=== PATIENT | male | born 1950 | race Caucasian/White ===

== ENCOUNTER 2022-01-17 20:03 | Inpatient (IN) | payer OTHER, MEDICAID ==
[~2022-01-17] VITALS: Ht 167.6 cm; Wt 73.9 kg
[2022-01-17] MEDS ORDERED: IPRATROPIUM BROMIDE (0.02%) 0.5MG/2.5ML NEB HHN ONE (20:30)
[2022-01-17] MEDS ORDERED: METHYLPREDNISOLONE SOD SUCC 125 MG/2 ML VIAL IV ONE (20:30)
[2022-01-17] MEDS ORDERED: EPINEPHRINE 1:1000 1 MG/ML AMP INJ ONE (20:30)
[2022-01-17] MEDS ORDERED: ALBUTEROL (0.083%) 2.5MG/3ML NEB HHN ONE (20:30)
[2022-01-17] MEDS: FAMOTIDINE 20MG/2ML VIAL IV ONE ×2 (20:37→20:40)
[2022-01-17] MEDS ORDERED: FUROSEMIDE 100MG/10ML VIAL IVP ONE (21:30)
[2022-01-17] MEDS ORDERED: NITROGLYCERIN 50MG PREMIX 250 ML IV ONE ×2 (21:30→21:45)
[2022-01-17 22:05] LABS: BG BASE EXCESS -9.1 mmol/L (-2.0-2.0); BG CARBOXYHEMOGLOBIN 0.5 % (0.5-1.5); BG DEOXYHEMOGLOBIN 8.4 % (0.0-5.0); BG FRACTION INSPIRED OXYGEN 60; BG HCO3 ACT 18.4 mmol/L (22.0-26.0); BG METHEMOGLOBIN 0.2 % (0.0-1.5); BG OXYGEN SATURATION 91.5 % (92.0-98.5); BG OXYHEMOGLOBIN 90.9 % (94.0-97.0); BG PCO2 45.4 mmHg (35.0-45.0); BG PH 7.226 (7.350-7.450); BG PO2 69.5 mmHg (75.0-100.0); BG SAMPLE SITE RIGHT BRACHIAL; BG TOTAL HEMOGLOBIN 16.1 g/dL (12.0-18.0); BG VENT MODE MASK - BIPAP
[2022-01-17 22:15] LABS: BASOPHILS % 0.5 % (0.0-2.0); EOSINOPHILS % 0.9 % (0.0-5.0); HEMATOCRIT. 46.8 % (42.0-52.0); HEMOGLOBIN. 15.2 g/dL (14.0-18.0); LYMPHOCYTES % 13.6 % (20.0-50.0); MEAN CORPUSCULAR HEMOGLOBIN 28.5 pg (28.0-32.0); MEAN CORPUSCULAR VOLUME 87.6 fL (80.0-94.0); MEAN PLATELET VOLUME 8.5 fl (7.4-10.4); MONOCYTES % 3.1 % (2.0-8.0); NEUTROPHILS % 81.9 % (40.0-76.0); PLATELET 303 x1000/uL (130-400); RED BLOOD CELL COUNT 5.34 mill/uL (4.7-6.1)
[2022-01-17 22:23] LABS: PROTHROMBIN TIME 10.6 sec (9.6-11.0)
[2022-01-17 22:38] LABS: CHLORIDE 98 mEq/L (98-107)
[2022-01-18] VITALS (39 sets, daily range): BP systolic 107–155; BP diastolic 60–88
[2022-01-18] MEDS ORDERED: NITROGLYCERIN 50MG PREMIX 250 ML IV PRN (13:00)
[2022-01-18] MEDS ORDERED: CEFTRIAXONE 1 G PREMIX 50 ML IV SCH (14:00)
[2022-01-18] MEDS ORDERED: ENOXAPARIN 80MG/0.8ML SYR SUBCUT SCH (14:00)
[2022-01-18] MEDS ORDERED: IPRATROPIUM/ALBUTEROL 0.5-3(2.5)MG/3ML NEB NEB PRN (14:00)
[2022-01-18] MEDS ORDERED: ONDANSETRON HCL 4MG/2ML INJ IV PRN (14:00)
[2022-01-18] MEDS ORDERED: ACETAMINOPHEN 325MG TABLET PO PRN (14:00)
[2022-01-18] MEDS ORDERED: HEPARIN 25,000 UNITS PREMIX 250 ML IV PRN (15:00)
[2022-01-18] MEDS ORDERED: HEPARIN 5000 UNITS/ML VIAL IV NR (15:00)
[2022-01-18] MEDS: ASPIRIN 81MG TABLET PO SCH (15:48)
[2022-01-18] MEDS: FUROSEMIDE 40MG/4ML VIAL IVP SCH ×2 (15:48→19:31)
[2022-01-18] MEDS: CEFTRIAXONE 1,000 MG in DEXTROSE 5% WATER 50 ML IV SCH (15:48)
[2022-01-18] MEDS: METHYLPREDNISOLONE SOD SUCC 40 MG/ML VIAL IV SCH ×2 (15:50→20:28)
[2022-01-18 16:56] LABS: PROTHROMBIN TIME 10.9 sec (9.6-11.0)
[2022-01-18 17:29] LABS: CREATINE KINASE 226 IU/L (39-308); CREATINE KINASE MB FRACTION 17.1 ng/mL (0.5-3.6)
[2022-01-18] MEDS: AZITHROMYCIN 500 MG in DEXT 5% WATER 250 ML IV SCH (17:32)
[2022-01-18] MEDS ORDERED: DEXTROSE 50% WATER 50ML SYRINGE IV PRN (18:15)
[2022-01-18] MEDS ORDERED: INSULIN LISPRO 100 UNITS/ML SUBCUT SCH ×2 (18:20→21:00)
[2022-01-18] MEDS ORDERED: INSULIN LISPRO 100 UNITS/ML SUBCUT NR (20:00)
[2022-01-18] MEDS: ATORVASTATIN CALCIUM 40MG TABLET PO SCH (20:28)
[2022-01-18] MEDS: CARVEDILOL 3.125 MG TABLET PO SCH (20:29)
[2022-01-18] MEDS ORDERED: BLOOD SUGAR DIAGNOSTIC STRIP TEST SCH (21:00)
[2022-01-18] MEDS ORDERED: HEPARIN 5000 UNITS/ML VIAL IV PRN ×2 (23:00)
[2022-01-19] VITALS (31 sets, daily range): BP systolic 104–136; BP diastolic 57–93
[2022-01-19] MEDS: BLOOD SUGAR DIAGNOSTIC STRIP TEST SCH ×5 (00:06→21:00)
[2022-01-19 00:15] LABS: CREATINE KINASE 152 IU/L (39-308); CREATINE KINASE MB FRACTION 10.1 ng/mL (0.5-3.6)
[2022-01-19] MEDS: FUROSEMIDE 40MG/4ML VIAL IVP SCH ×2 (06:04→17:23)
[2022-01-19 07:25] LABS: BASOPHILS % 0.3 % (0.0-2.0); HEMATOCRIT. 38.8 % (42.0-52.0); HEMOGLOBIN. 12.8 g/dL (14.0-18.0); LYMPHOCYTES % 8.3 % (20.0-50.0); MEAN CORPUSCULAR HEMOGLOBIN 28.7 pg (28.0-32.0); MEAN CORPUSCULAR VOLUME 86.9 fL (80.0-94.0); MEAN PLATELET VOLUME 8.1 fl (7.4-10.4); MONOCYTES % 2.6 % (2.0-8.0); NEUTROPHILS % 88.8 % (40.0-76.0); PLATELET 192 x1000/uL (130-400); RED BLOOD CELL COUNT 4.47 mill/uL (4.7-6.1); RED CELL DISTRIBUTION WIDTH 14.7 % (11.6-14.6)
[2022-01-19] MEDS: INSULIN LISPRO 100 UNITS/ML SUBCUT SCH ×4 (07:29→21:27)
[2022-01-19] MEDS: ASPIRIN 81MG TABLET PO SCH (08:11)
[2022-01-19] MEDS: CARVEDILOL 3.125 MG TABLET PO SCH (08:12)
[2022-01-19] MEDS: METHYLPREDNISOLONE SOD SUCC 40 MG/ML VIAL IV SCH (08:12)
[2022-01-19 09:53] LABS: CHLORIDE 100 mEq/L (98-107)
[2022-01-19 10:05] LABS: HDL CHOLESTEROL 56 mg/dL (40-59); LDL CHOLESTEROL 76 mg/dL (5-100)
[2022-01-19] MEDS ORDERED: MIDAZOLAM HCL 2 MG/2 ML VIAL ONE (13:22)
[2022-01-19] MEDS ORDERED: DIPHENHYDRAMINE 50MG/ML VIAL ONE (13:22)
[2022-01-19] MEDS ORDERED: IODIXANOL 320MG/ML 100 ML BOTTLE IV ONE ×2 (13:23→14:11)
[2022-01-19] MEDS ORDERED: FENTANYL CITRATE/PF 50MCG/ML 2ML VIAL ONE (13:23)
[2022-01-19] MEDS ORDERED: LIDOCAINE HCL/PF 2% 20MG/ML 5 ML/VIAL ONE (13:23)
[2022-01-19] MEDS ORDERED: LIDOCAINE HCL 1% 20ML VIAL (Pyxis) INJ ONE (13:25)
[2022-01-19] MEDS: CEFTRIAXONE 1,000 MG in DEXTROSE 5% WATER 50 ML IV SCH (15:14)
[2022-01-19] MEDS: AZITHROMYCIN 500 MG in DEXT 5% WATER 250 ML IV SCH (15:14)
[2022-01-19] MEDS ORDERED: ATROPINE SULFATE 1MG/10ML SYR IV PRN (15:15)
[2022-01-19] MEDS ORDERED: CLOPIDOGREL 75MG TABLET PO NR (16:00)
[2022-01-19] MEDS ORDERED: INSULIN LISPRO 100 UNITS/ML SUBCUT NR (17:15)
[2022-01-19] MEDS: ATORVASTATIN CALCIUM 40MG TABLET PO SCH (21:26)
[2022-01-19] MEDS: CARVEDILOL 6.25 MG TABLET PO SCH (21:26)
[2022-01-20] VITALS (13 sets, daily range): BP systolic 108–134; BP diastolic 54–80
[2022-01-20 06:37] LABS: BASOPHILS % 0.1 % (0.0-2.0); HEMOGLOBIN. 12.8 g/dL (14.0-18.0); LYMPHOCYTES % 17.2 % (20.0-50.0); MEAN CORPUSCULAR HEMOGLOBIN 28.6 pg (28.0-32.0); MEAN CORPUSCULAR VOLUME 84.8 fL (80.0-94.0); MEAN PLATELET VOLUME 8.4 fl (7.4-10.4); MONOCYTES % 7.4 % (2.0-8.0); NEUTROPHILS % 75.3 % (40.0-76.0); PLATELET 204 x1000/uL (130-400); RED BLOOD CELL COUNT 4.48 mill/uL (4.7-6.1); RED CELL DISTRIBUTION WIDTH 15.1 % (11.6-14.6)
[2022-01-20 07:05] LABS: CHLORIDE 101 mEq/L (98-107)
[2022-01-20] MEDS: BLOOD SUGAR DIAGNOSTIC STRIP TEST SCH ×4 (07:29→21:08)
[2022-01-20] MEDS: INSULIN LISPRO 100 UNITS/ML SUBCUT SCH ×4 (08:00→21:06)
[2022-01-20] MEDS: FUROSEMIDE 40MG/4ML VIAL IVP SCH ×2 (09:37→17:57)
[2022-01-20] MEDS: ASPIRIN 81MG TABLET PO SCH (09:38)
[2022-01-20] MEDS: CARVEDILOL 6.25 MG TABLET PO SCH ×2 (09:38→21:07)
[2022-01-20] MEDS: CLOPIDOGREL 75MG TABLET PO SCH (09:38)
[2022-01-20] MEDS: SPIRONOLACTONE 25MG TABLET PO SCH (09:38)
[2022-01-20] MEDS: CEFTRIAXONE 1,000 MG in DEXTROSE 5% WATER 50 ML IV SCH (13:31)
[2022-01-20] MEDS: AZITHROMYCIN 500 MG TABLET PO SCH (14:26)
[2022-01-20] MEDS: ATORVASTATIN CALCIUM 40MG TABLET PO SCH (21:07)
[2022-01-21] VITALS (9 sets, daily range): BP systolic 112–138; BP diastolic 56–82
[2022-01-21] MEDS: FUROSEMIDE 40MG/4ML VIAL IVP SCH (06:01)
[2022-01-21] MEDS: BLOOD SUGAR DIAGNOSTIC STRIP TEST SCH ×2 (08:12→12:53)
[2022-01-21] MEDS: ASPIRIN 81MG TABLET PO SCH (08:31)
[2022-01-21] MEDS: SPIRONOLACTONE 25MG TABLET PO SCH (08:31)
[2022-01-21] MEDS: CLOPIDOGREL 75MG TABLET PO SCH (08:31)
[2022-01-21] MEDS: CARVEDILOL 6.25 MG TABLET PO SCH (08:31)
[2022-01-21] MEDS: INSULIN LISPRO 100 UNITS/ML SUBCUT SCH ×2 (08:32→13:15)
[2022-01-21] MEDS: AZITHROMYCIN 500 MG TABLET PO SCH (08:32)
[2022-01-21] MEDS: CEFTRIAXONE 1,000 MG in DEXTROSE 5% WATER 50 ML IV SCH (13:14)
== END 2022-01-21 16:00 | disposition home or self-care (01) | DRG 280 ==
LOC: ER 20:03 → EDBEDREQTM 21:48 → EDBEDREQSVC 21:48 → EDBEDREQTM 22:18 → EDBEDREQ 22:18 → MICUSO 01-18 01:16 → CVICU 01-18 10:23 → 5EST 01-19 18:10
PROVIDERS: ADMIT Internal Medicine; ATTEND Internal Medicine
PROC: 5A09357 Assistance with Respiratory Ventilation, Less than 24 Consecutive Hours, Continuous Positive Airway Pressure (ICD-10-PCS; 2022-01-17)
PROC: 4A023N7 Measurement of Cardiac Sampling and Pressure, Left Heart, Percutaneous Approach (ICD-10-PCS; principal; 2022-01-19)
PROC: B211YZZ Fluoroscopy of Multiple Coronary Arteries using Other Contrast (ICD-10-PCS; 2022-01-19)
PROC: B310YZZ Fluoroscopy of Thoracic Aorta using Other Contrast (ICD-10-PCS; 2022-01-19)
PROC: B213YZZ Fluoroscopy of Multiple Coronary Artery Bypass Grafts using Other Contrast (ICD-10-PCS; 2022-01-19)
PROC: B41FYZZ Fluoroscopy of Right Lower Extremity Arteries using Other Contrast (ICD-10-PCS; 2022-01-19)
DX: I21.4 Non-ST elevation (NSTEMI) myocardial infarction (principal); I50.21 Acute systolic (congestive) heart failure; J96.01 Acute respiratory failure with hypoxia; J96.02 Acute respiratory failure with hypercapnia; J81.0 Acute pulmonary edema; I42.9 Cardiomyopathy, unspecified; I25.10 Atherosclerotic heart disease of native coronary artery without angina pectoris; E78.00 Pure hypercholesterolemia, unspecified; I11.0 Hypertensive heart disease with heart failure; E11.65 Type 2 diabetes mellitus with hyperglycemia; D72.829 Elevated white blood cell count, unspecified; E78.5 Hyperlipidemia, unspecified; Z95.1 Presence of aortocoronary bypass graft; Z20.822 Contact with and (suspected) exposure to COVID-19
CPT/HCPCS: 36415; 36600; 71045; 80048; 80053; 80061; 82375; 82550; 82553; 82805; 82962; 83036; 83880; 84484; 85025; 85049; 85347; 87426; 93005; 93306; 93459; 94640; 94660; 99291; C1760; C1769; C1887; C1893; C1894; J0456; J0696; J1200; J1644; J1815; J1940; J2250; J2920; J2930; J3010; J3490; J7060; Q9967